=== PATIENT | male | born 1940 | race African-American/Black ===

== ENCOUNTER 2019-08-09 20:03 | Emergency (ER) | payer OTHER ==
[~2019-08-09] VITALS: Wt 104.3 kg
[~2019-08-09 20:03] MED LIST: ASPIR 8181 MG PO; AZITHROMYCIN 2250 MG PO; HYTRIN 5 M5 MG/1 CAP PO; LIPITOR 20 MG T20 M1 PO; LOSARTAN-HCTZ1 EAC2 PO; NITROGLYCERIN0.4 MG SUBLING; OMEPRAZOLE40 MG PO; PREDNISONE 10 M10 MG PO; SPIRIVA INH
[2019-08-09] MEDS ORDERED: NAPROSYN500 MG PO (23:14)
[2019-08-09] MEDS ORDERED: PREDNISONE 10 M10 MG PO (23:14)
[2019-08-09] MEDS ORDERED: TERAZOSIN HCL10 MG PO (23:15)
[2019-08-09] MEDS ORDERED: NEURONTIN100 MG PO (23:15)
== END 2019-08-09 20:12 ==
LOC: M.ERS 20:03
DX: I46.9 Cardiac arrest, cause unspecified (principal); I10 Essential (primary) hypertension; Z20.828 Contact with and (suspected) exposure to other viral communicable diseases; Z87.891 Personal history of nicotine dependence